=== PATIENT | female | born 1975 | race Caucasian/White ===

== ENCOUNTER → 2020-09-01 | Outpatient (CLI) | payer OTHER ==
[~2020-09-01] MED LIST: LEXAPRO20 MG PO; NEURONTIN100 MG/CAP PO; NORCO 325 MG-51 TAB PO
== END ==
LOC: COL.RAD 08:09
DX: N99.81 Other intraoperative complications of genitourinary system (principal); Z90.710 Acquired absence of both cervix and uterus